=== PATIENT | female | born 1985 | race Caucasian/White ===

== ENCOUNTER 2023-08-05 09:38 | Emergency (ER) | payer SELFPAY ==
[2023-08-05 09:44] VITALS: BP 118/88
[2023-08-05 10:09] VITALS: BMI 38.3
--- NOTE | 2023-08-05 11:04 | ED.GENMED ---
History of Present Illness
General
Chief Complaint: Back Pain
Source: patient
Exam Limitations: none
Time Seen by Provider: 08/05/23 09:56
Nursing documentation reviewed up to this point in time: agreed with
Travel History
Have you had any contact with someone who has COVID-19?: No
Do you have any symptoms of coronavirus? Fever > 100 degrees, chills, cough, shortness of breath, sore throat, loss of taste or smell, muscle aches, or headache?: No
History of Present Illness
History of Present Illness:
37-year-old female with a past medical history of hypertension, asthma who presents to the emergency department for evaluation of low back pain. 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 She
says that about 2 weeks ago she was lifting heavy truck batteries at work and the next day woke up with soreness in her low back. She says that since then she has had constant low back pain and over the past few days she has started to notice some
shooting pains down the posterior left leg and some heaviness of the left leg. She says that she has been taking [id number] meds including Tylenol and NSAIDs, using heating pack and symptoms do not seem to be getting any better. She finally
came to the emergency room for assessment. She denies any symptoms in the right lower extremity. She denies any incontinence of bowel or bladder. She denies any saddle anesthesia. She denies any direct fall or trauma. She denies any other
complaints today.
Past History
Past History
ED Past Medical History: Asthma, HTN and Other (Mirana)
ED Past Surgical History: Cholecystectomy (Gall bladder removed in 2014) and (c-sections x2,)
Social History
Tobacco: Smoker
Alcohol: Occasional
Drug: None
Personal:
Living: with family
Employment: Not employed
Family History
Family History: Other (Noncontributory)
Review of Systems
Review of Systems
All Other Systems: ROS reviewed and negative except as documented in HPI and ROS
Constitutional: Denies fever or chills
Respiratory: Denies trouble breathing
Cardiac: Denies chest pain
ABD/GI: Denies abdominal pain or nausea
: Denies dysuria, flank pain or incontinence
Musculoskeletal: Reports back pain; Denies neck pain
Neurological: Reports weakness (Left leg) and other (Paresthesias left leg); Denies headache
Phy Exam
Physical Exam
Physical Exam:
General: Awake, alert, oriented x3; no acute distress
Head: Normocephalic, atraumatic
Eyes: Conjunctiva normal
Throat: Airway intact, handling secretions
Neck: Trachea midline, supple without meningismus
Lungs: Breathing comfortably not in distress
Heart: Regular rate
Abd: Soft, non distended, nontender
Back: She has some tenderness in the lumbar spine as well as in the left paraspinal region; she is negative straight leg raise test on the right but positive on the left
Neuro: Cranial nerves grossly intact, speech fluid; although she reports subjective weakness her strength and sensation is objectively intact proximally and distally 5/5 in both the right and the left lower extremity; she is ambulatory with normal
gait here
Skin: no rash
Extremities: No edema in extremities, equal pulses in all extremities
Scores
Heart Failure Risk
Heart Failure Risk Score: Not Applicable
Heart Score for Chest Pain Patients
STEMI patient?: Not applicable
Withdrawal Assessment of Alcohol
Withdrawal Assessment Completed?: Not applicable
Course
Orders/Labs/Results
Orders:
Orders
08/05/23 09:57
Test Result ONCE
CR Lumbar Spine 2 Or 3 Views Urgent
Comment:
Reason For Exam: subacute low back pain
08/05/23 11:08
HCG, Urine Qualitative Screen Urgent
Date Specimen was Collected: 08/05/23
Time Specimen was Collected: 10:49
Urinalysis Reflex To Culture Urgent
Date Specimen was Collected: 08/05/23
Time Specimen was Collected: 10:49
08/05/23 11:15
Ketorolac [Toradol] 30 mg IM NOW STA
Lidocaine [Lidocaine 4% Patch] 1 patch TOPICAL ONCE ONE
Prednisone [Deltasone] 50 mg PO NOW STA
Vital Signs
Initial and Last Documented VS:
Initial Vital Signs
Temp Pulse Resp BP Pulse Ox
36.7 C 78 22 118/88 100
08/05/23 09:44 08/05/23 09:44 08/05/23 09:44 08/05/23 09:44 08/05/23 09:44
Last Documented Vital Signs
Temp Pulse Resp BP Pulse Ox
36.7 C 53 18 113/54 100
08/05/23 09:44 08/05/23 12:45 08/05/23 12:45 08/05/23 12:45 08/05/23 12:45
MDM/Problems Addressed
Differential Diagnosis Includes:
Myofascial strain, herniated/bulging disc with radiculopathy, lumbar compression fracture
MDM/Problems Addressed:
37-year-old female presents for evaluation of low back pain mostly in the left side for the past 2 weeks since doing some heavy lifting at work. Now having some radicular symptoms and subjective weakness in the left leg. No incontinence of bowel
or bladder, no saddle anesthesia, no symptoms in the right leg. Vital signs are normal. Physical exam as above. Suspect that this is likely herniated disc/bulging disc with sciatica/radiculopathy. No red flag symptoms or signs on exam to suggest
spinal emergency and no indication for emergent MRI at this point. We sent for lumbar x-ray which showed no acute pathology. Will plan to treat symptomatically. Likely needs physical therapy and rest�advise no heavy lifting.
Lumbar x-ray no acute pathology. Patient feeling better after Toradol, Lidoderm, prednisone. Will discharge on steroid taper, NSAIDs and Tylenol as needed, Lidoderm patches as needed and written prescription for physical therapy. She will
follow-up with her primary doctor. Advised rest and no heavy lifting and work note provided. Patient is very happy with this plan. Spoke about return precautions all questions answered.
*Radiology
Radiology exam reviewed: radiology read reviewed
*Pulse Oximetry
Patient hypoxic: no
*Critical Care Note
Total Time (30-74mins, 75-104mins- exclusive of procedures): Not Applicable
Data Reviewed
Source: patient
ED Attending Note
-
Portions of this chart may have been created with voice recognition software.� Occasional wrong word or��sound alike� substitutions may have occurred due to the inherent limitations of voice recognition software.
Discharge Plan
Departure
Patient Disposition: Home (Routine Discharge)
Date of Disposition: 08/05/23
Time of Disposition: 13:37
Patient with high blood pressure during this ER visit?: No
Discharge Problem:
Acute low back pain with sciatica
Instructions: Low Back Pain (DC), Sciatica (DC)
Prescriptions:
New
prednisone 10 mg Tablet
See Rx Instructions .ROUTE .COMPLEX Qty: 45 0RF
Rx Instructions:
Take By Mouth:
50 mg daily x3 days, 40 mg daily x3 days,
30 mg daily x3 days, 20 mg daily x3 days,
10 mg daily x3 days
naproxen 500 mg tablet
500 mg PO BID PRN (Reason: Pain) Qty: 30 0RF
lidocaine 5 % adhesive patch,medicated
1 patch topical DAILY Qty: 30 0RF
No Action
prednisone 10 mg Tablet
See Rx Instructions .ROUTE .COMPLEX Qty: 30 0RF
Rx Instructions:
Take By Mouth:
40 mg daily x3 days, 30 mg daily x3 days,
20 mg daily x3 days, 10 mg daily x3 days.
cyclobenzaprine 10 mg tablet
10 mg PO TID PRN (Reason: spasm) Qty: 10 0RF
Referrals:
Florence Alicea MD [Family Provider] - Call in 1-3 days for appt
Stand Alone Forms: Return to Work
Activity Restrictions/Additional Instructions:
Thank you for visiting the Emergency Department at [facility].
1. Please schedule a follow up appointment as directed. Call first thing tomorrow morning to make an appointment.
2. If indicated, please take your medications as instructed and indicated on discharge paperwork.
3. If any of your symptoms do not improve, or persist, or become more severe within 6-12 hours, please return to the emergency department for further care.
4. Please return to the emergency department if you develop a headache, neck pain/stiffness, fever greater than 100.4F, chest pain, shortness of breath, persistent nausea, vomiting, slurred speech, difficulty walking, numbness/tingling, weakness,
signs of infection or any other symptoms that are worrisome to you.
Please call [phone] if you have any questions.
Interventions
Interventions:
*Risk Screen - Suicide Last Done: 08/05/23 10:09
*General Assessment Last Done: 08/05/23 10:09
*Neglect/Abuse Screening Last Done: 08/05/23 10:09
ED- Fall Risk Assessment Last Done: 08/05/23 10:09
*ED COVID-19 Vaccine History Last Done: 08/05/23 09:51
*Nursing Disposition Last Done: 08/05/23 14:00
ED-Musculoskeletal Assessment Last Done: 08/05/23 10:09
Discharge Date and Time
Discharge Date/Time: 08/05/23 13:50
Print Language: IVORIAN
[2023-08-05 11:23] LABS: Urine Albumin Negative (Neg - Trace); Urine Bilirubin Negative (Negative); Urine Character Clear (Clear); Urine Color Yellow; Urine Glucose Negative (Negative); Urine Ketone Negative (Negative); Urine Leukocyte Negative (Negative); Urine Nitrite Negative (Negative); Urine Occult Blood Negative (Negative); Urine Specific Gravity 1.005 (<1.030); Urine Urobilinogen Negative (Neg - 1+)
[2023-08-05 11:38] LABS: HCG, Urine Qualitative Screen Negative
[2023-08-05] MEDS: TORADOL 30 MG IM (11:42)
[2023-08-05] MEDS: LIDOCAINE 4% PATCH 1 PATCH TOPICAL (11:42)
[2023-08-05] MEDS: DELTASONE 50 MG PO (11:42)
[2023-08-05 12:45] VITALS: BP 113/54
--- NOTE | 2023-08-05 13:59 | EDRN ---
Discharge instructions given to patient by .
== END 2023-08-05 13:50 | disposition home or self-care (01) ==
LOC: EMR 09:38
PROVIDERS: EMERGENCY PHYSICIAN Emergency Medicine; FAMILY PHYSICIAN Internal Medicine
DX: M54.40 Lumbago with sciatica, unspecified side (principal); I10 Essential (primary) hypertension; J45.909 Unspecified asthma, uncomplicated; I71.40 Abdominal aortic aneurysm, without rupture, unspecified; F17.200 Nicotine dependence, unspecified, uncomplicated; Z90.49 Acquired absence of other specified parts of digestive tract
CPT/HCPCS: 99283; 96372; 72100; 81003; 81025

== ENCOUNTER 2023-11-24 20:03 | Emergency (ER) | payer OTHER, SELFPAY ==
[2023-11-24 20:19] VITALS: BP 118/74
[2023-11-24 22:23] VITALS: BP 103/72
[2023-11-24 23:02] VITALS: BMI 38.3
[2023-11-24 23:11] VITALS: BP 108/58
--- NOTE | 2023-11-24 23:51 | ED.GENMED ---
History of Present Illness
General
Chief Complaint: Back Pain
Source: patient
Exam Limitations: none
Time Seen by Provider: 11/24/23 23:08
History of Present Illness
History of Present Illness:
This is a 38 year old female that comes in with c/o low back pain. States that this started 2 days ago. States that she has had back issues before as her PCP a month ago gave her Flexeril to help with her pain. State that this time she went to sit
up higher in bed and she heard something pop on the left side. Denies any fever, chills, chest pain, SOB, abd pain, nausea, vomiting, diarrhea, heaache, dizziness, urinary burning. Denies any bowel or bladder incontinence.
Past History
Past History
ED Past Medical History: Asthma, HTN, Psychiatric (Bipolar), Other and Other (Mirana, Back pain, )
ED Past Surgical History: Cholecystectomy (Gall bladder removed in 2014), ('s x3), Orthopedic (right knee repair) and Other (Sudeep-en-y gastric bypass)
Social History
Tobacco: Smoker
Alcohol: None
Drug: None
Personal:
Living: with family
Employment: Not employed
Family History
Family History: Other (Noncontributory)
Review of Systems
Review of Systems
All Other Systems: ROS reviewed and negative except as documented in HPI and ROS
Constitutional: Reports no symptoms; Denies fever or chills
EENT: Reports no symptoms
Respiratory: Reports no symptoms; Denies cough or trouble breathing
Cardiac: Reports no symptoms; Denies chest pain
ABD/GI: Denies abdominal pain, nausea, vomiting or diarrhea
: Reports no symptoms; Denies dysuria, frequency, incontinence or urgency
Musculoskeletal: Reports back pain (Low back pain)
Skin: Reports no symptoms
Neurological: Reports no symptoms; Denies dizzy or headache
Psychiatric: Reports no symptoms
Phy Exam
General Physical Exam
General Presentation: no apparent distress
General age: appears stated age
General Skin: warm and dry
General Habitus: normal
General Mental: alert
General Hydration: appears well hydrated
ENT Exam
ENT Exam: TM's normal, pharynx normal and neck supple
Eye Exam
Eye Exam: EOMI
Cardiovascular Exam
Cardiovascular Exam: regular rate/rhythm, no edema, no murmur and normal peripheral pulses
Pulmonary Exam
Pulmonary Exam: lungs clear, no respiratory distress, no rales, chest non tender, no crackles, no rhonchi, no wheezing and no cough
Gastrointestinal Exam
Gastrointestinal Exam: normal bowel sounds, non tender, soft, no organomegaly, no pulsatile mass and non distended
Musculoskeletal Exam
Musculoskeletal Exam: back pain (with palpation over the lumbar spine. Discomfort with left leg straight leg raise, Turning side to side. Going up on her toes and bending forward 20 degree's) and no edema
Skin Exam
Skin Exam: normal color, warm/dry, no rash and no petechia
Psychiatric Exam
Psychiatric Exam: normal mood/affect
Course
Orders/Labs/Results
Orders:
Orders
11/24/23 23:50
Complete Blood Count/With Diff Urgent
Comprehensive Metabolic Panel Urgent
HCG, Serum Qualitative Screen Urgent
Acetaminophen [Tylenol] 1,000 mg PO NOW STA
Dexamethasone Sod Phosphate [Decadron] 20 mg IV NOW STA
Ketorolac [Toradol] 30 mg IV NOW STA
Test Result ONCE
11/25/23 00:02
Beta HCG Quantitative Urgent
Comment: ADD ON
11/25/23 00:35
Add On- LAB Urgent
Tests Added?: HCG quant
Abnormal Lab Results
11/25/23
00:02
RBC 4.19 L 10^6/uL
(4.20-5.40)
Hgb 10.5 L g/dL
(12.0-16.0)
Hct 31.9 L %
(37.0-47.0)
MCV 76.1 L fL
(81.0-99.0)
MCH 25.1 L pg
(27.0-31.0)
MCHC 32.9 L g/dL
(33.0-37.0)
RDW 14.6 H %
(11.5-14.5)
MPV 10.8 H fL
(7.4-10.4)
Carbon Dioxide 20 L mmol/L
(22-30)
BUN 18 H mg/dl
(7-17)
11/25/23 00:02
11/25/23 00:02
H/H low, anemac, carbon dioxide slightly low. Slight Dehydration. HCG positive. HCG quant <2.39
Vital Signs
Initial and Last Documented VS:
Initial Vital Signs
Temp Pulse Resp BP Pulse Ox
98.2 F 88 24 118/74 98
11/24/23 20:19 11/24/23 20:19 11/24/23 20:19 11/24/23 20:19 11/24/23 20:19
Last Documented Vital Signs
Temp Pulse Resp BP Pulse Ox
98.2 F 75 18 106/58 99
11/24/23 20:19 11/25/23 01:00 11/25/23 01:00 11/25/23 01:00 11/25/23 01:00
MDM/Problems Addressed
Differential Diagnosis Includes:
Degenerative lumbar spine, Compression fractures.
MDM/Problems Addressed:
This is a 38 year old female that comes in with c/o low back pain. States that she heard something pop 2 days ago when she went to pull herself up higher in bed.
will check labs and get CT of the lumbar spine.
back into see patient. Explained that her HCG is positive. she will not be able to have a CT scan. Will get HCG Quant and wait for other labs.
back into see patient. Explained that her HCG is <2.39. This is so low that she is not really considered . This may be just a very early . Patient to use just Tylenol for her back pain, heat or ice. Follow up with the AIRCRAFT DESIGNER for
further evaluation and blood testing. Patient to return with abd pain, or any other concerns.
Chronic conditions affecting care:
Chronic back pain
Acute Exacerbation and/or Progression of Chronic Illness:
Chronic back pain
*Pulse Oximetry
Patient hypoxic: no
*EKG
Interpreted by ED Provider?: NA
Rate: EKG- N/A
*Vp Construction Interpretation
Rate: Vp Construction- N/A
*Critical Care Note
Total Time (30-74mins, 75-104mins- exclusive of procedures): Not Applicable
ED Attending Note
-
Portions of this chart may have been created with voice recognition software.� Occasional wrong word or��sound alike� substitutions may have occurred due to the inherent limitations of voice recognition software.
Discharge Plan
Departure
Patient Disposition: Home (Routine Discharge)
Date of Disposition: 11/25/23
Time of Disposition: 01:34
Patient with high blood pressure during this ER visit?: No
Condition: Good
Covid-19: Not Applicable
Discharge Problem:
Low back pain
Instructions: Low Back Pain (DC)
Prescriptions:
No Action
cyclobenzaprine 10 mg tablet
10 mg PO TID PRN (Reason: spasm) Qty: 10 0RF
acetaminophen [Tylenol Ex Str Arthritis Pain] 500 mg Tablet
1,000 mg PO Q6H PRN (Reason: pain)
ibuprofen [Motrin] 400 mg Tablet
200 mg PO Q6H PRN (Reason: pain)
Referrals:
Florence Alicea MD [Family Provider] - Follow up in 2-3 days
Activity Restrictions/Additional Instructions:
As discussed, your blood work shows that you are anemic. Your HCG is very low and this would not be considered . However, this may just be very early. Please follow up with the AIRCRAFT DESIGNER for further evaluation. Please no working for the next 2
days. Rest. Heat or ice to the low back. Follow up with the family doctor. You my use Tylenol 1000mg every 6 hours for pain. IF YOU HAVE INCREASED OR CHANGING PAIN, OR YOU HAVE ANY OTHER CONCERNS PLEASE RETURN TO THE EMERGENCY ROOM.
Interventions
Interventions:
*Risk Screen - Suicide Last Done: 11/24/23 20:19
*General Assessment Last Done: 11/24/23 23:03
*Neglect/Abuse Screening Last Done: 11/24/23 20:19
ED- Fall Risk Assessment Last Done: 11/24/23 23:06
*ED COVID-19 Vaccine History Last Done: 11/24/23 23:03
ED-Musculoskeletal Assessment Last Done: 11/24/23 23:07
ED-Peripheral Vascular Assessment Last Done: 11/24/23 23:07
ED-Skin Assessment Last Done: 11/24/23 23:07
Discharge Date and Time
Print Language: BERMUDIAN
[2023-11-25] VITALS: BP 107/58
[2023-11-25] MEDS: TYLENOL 1000 MG PO (00:05)
[2023-11-25] MEDS: TORADOL 30 MG IV (00:06)
[2023-11-25] MEDS: DECADRON 20 MG IV (00:06)
[2023-11-25 00:10] LABS: % Eosinophils 1.7 % (0-6); % Immature Granulocytes 0.2 % (0-0.5); % Lymphocytes 46.1 % (20.5-51.1); % Monocytes 7.1 % (1.7-9.3); % Neutrophils 43.9 % (42.2-75.2); Absolute Basophils 0.1 10^3/uL (0-0.2); Absolute Eosinophils 0.1 10^3/uL (0-0.7); Absolute Lymphocytes 2.4 10^3/uL (1.2-3.4); Absolute Monocytes 0.4 10^3/uL (0.1-0.6); Absolute Neutrophils 2.3 10^3/uL (1.4-6.5); Hematocrit 31.9 % (37.0-47.0); Hemoglobin 10.5 g/dL (12.0-16.0); Mean Corp Hgb Conc. 32.9 g/dL (33.0-37.0); Mean Corpuscular Hgb 25.1 pg (27.0-31.0); Mean Corpuscular Volume 76.1 fL (81.0-99.0); Mean Platelet Volume 10.8 fL (7.4-10.4); Nucleated Red Blood Cells % 0 %; Platelet Count 209 10^3/uL (130-400); Red Blood Cell Count 4.19 10^6/uL (4.20-5.40); Red Cell Dist. Width 14.6 % (11.5-14.5); White Blood Cell Count 5.2 10^3/uL (4.8-10.8)
[2023-11-25 00:32] LABS: HCG, Serum Qualitative Screen Positive
[2023-11-25 00:34] LABS: ALT (SGPT) 19 U/L (0-35); AST (SGOT) 28 U/L (14-36); Albumin 4.7 g/dl (3.5-5.0); Alkaline Phosphatase 85 U/L (38-126); Blood Urea Nitrogen 18 mg/dl (7-17); Calcium 9.4 mg/dl (8.4-10.2); Carbon Dioxide 20 mmol/L (22-30); Chloride 106 mmol/L (98-107); Estimated Creatinine Clearance > 125 ml/min; Glucose 93 mg/dl (70-99); Potassium 4.5 mmol/L (3.5-5.1); Sodium 142 mmol/L (135-145); Total Bilirubin 0.7 mg/dl (0.2-1.3); Total Protein 7.3 g/dl (6.3-8.2); eGFR > 60.00
[2023-11-25 01:00] VITALS: BP 106/58
[2023-11-25 01:12] VITALS: BP 106/58
[2023-11-25 01:13] LABS: Beta HCG Quantitative < 2.39 mIU/ml
== END 2023-11-25 01:42 | disposition home or self-care (01) ==
LOC: EMR 20:03
PROVIDERS: Clinical Nurse Specialist Family Health; EMERGENCY PHYSICIAN Emergency Medicine; FAMILY PHYSICIAN Internal Medicine
DX: M54.50 Low back pain, unspecified (principal); J45.909 Unspecified asthma, uncomplicated; I10 Essential (primary) hypertension; F31.9 Bipolar disorder, unspecified; F17.200 Nicotine dependence, unspecified, uncomplicated; Z90.49 Acquired absence of other specified parts of digestive tract; Z98.84 Bariatric surgery status
CPT/HCPCS: 99283; 80053; 84702; 84703; 85025

== ENCOUNTER 2024-09-07 13:14 | Emergency (ER) | payer OTHER, SELFPAY ==
[2024-09-07 13:45] VITALS: BP 140/76
[2024-09-07 14:12] LABS: % Basophils 0.5 % (0-2); % Eosinophils 0.3 % (0-6); % Immature Granulocytes 0.3 % (0-0.5); % Lymphocytes 10.5 % (20.5-51.1); % Neutrophils 76.4 % (42.2-75.2); Absolute Lymphocytes 0.7 10^3/uL (1.2-3.4); Absolute Monocytes 0.8 10^3/uL (0.1-0.6); Absolute Neutrophils 5.1 10^3/uL (1.4-6.5); Mean Corpuscular Hgb 22.2 pg (27.0-31.0); Mean Corpuscular Volume 71.6 fL (81.0-99.0); Nucleated Red Blood Cells % 0 %; Platelet Count 178 10^3/uL (130-400); Red Blood Cell Count 4.05 10^6/uL (4.20-5.40); Red Cell Dist. Width 15.9 % (11.5-14.5); White Blood Cell Count 6.7 10^3/uL (4.8-10.8)
[2024-09-07 14:13] LABS: Urine Albumin 2+ (Neg - Trace); Urine Bilirubin Negative (Negative); Urine Character Cloudy (Clear); Urine Color Yellow; Urine Glucose Negative (Negative); Urine Ketone Negative (Negative); Urine Leukocyte 3+ (Negative); Urine Nitrite Positive (Negative); Urine Occult Blood 4+ (Negative); Urine Specific Gravity 1.015 (<1.030); Urine Urobilinogen 2+ (Neg - 1+)
[2024-09-07 14:23] LABS: ALT (SGPT) 18 U/L (0-35); AST (SGOT) 24 U/L (14-36); Albumin 4.4 g/dl (3.5-5.0); Alkaline Phosphatase 62 U/L (38-126); Blood Urea Nitrogen 16 mg/dl (7-17); Calcium 8.9 mg/dl (8.4-10.2); Carbon Dioxide 24 mmol/L (22-30); Chloride 106 mmol/L (98-107); Glucose 98 mg/dl (70-99); Potassium 4.4 mmol/L (3.5-5.1); Sodium 136 mmol/L (135-145); Total Bilirubin 1.1 mg/dl (0.2-1.3); Total Protein 7.3 g/dl (6.3-8.2); eGFR > 60.00
[2024-09-07 14:37] LABS: HCG, Serum Qualitative Screen Positive
[2024-09-07 14:59] LABS: Urine Red Blood Cell 30-40 /HPF (0-2)
[2024-09-07 15:00] LABS: Urine Bacteria Many (Negative); Urine White Cell >100 /HPF (0-5)
[2024-09-07 18:19] VITALS: BP 144/63
--- NOTE | 2024-09-07 18:26 | ED.GENMED ---
History of Present Illness
General
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
Source: patient
Exam Limitations: none
Time Seen by Provider: 09/07/24 18:11
Nursing documentation reviewed up to this point in time: agreed with
History of Present Illness
History of Present Illness:
Patient is a 39-year-old female who presents to the ER for evaluation. Patient reports that starting a week ago she has had urinary frequency and dysuria. She took Azo and pain resolved however over the past several days patient has had symptoms
come back and complains of chills and right back pain. She denies any nausea vomiting.
Last menstrual period was August 05. She denies any abdominal pain. Denies any vaginal bleeding.
Past History
Past History
ED Past Medical History: Asthma, HTN, Psychiatric (Bipolar), Other and Other (Mirana, Back pain, )
ED Past Surgical History: Cholecystectomy (Gall bladder removed in 2014), ('s x3), Orthopedic (right knee repair) and Other (Sudeep-en-y gastric bypass)
Social History
Tobacco: Smoker
Alcohol: None
Drug: None
Personal:
Living: with family
Employment: Not employed
Family History
Family History: Other (Noncontributory)
Phy Exam
General Physical Exam
General Presentation: no apparent distress
General age: appears stated age
General Skin: warm and dry
General Habitus: normal
General Mental: alert
General Hydration: appears well hydrated
Cardiovascular Exam
Cardiovascular Exam: regular rate/rhythm, no murmur and normal peripheral pulses
Pulmonary Exam
Pulmonary Exam: lungs clear and no respiratory distress
Gastrointestinal Exam
Gastrointestinal Exam: non tender and soft
Neurological Exam
Neurological Exam: alert and oriented x3
Musculoskeletal Exam
Musculoskeletal Exam: full ROM
Skin Exam
Skin Exam: normal color and warm/dry
Psychiatric Exam
Psychiatric Exam: normal mood/affect
Course
Orders/Labs/Results
Orders:
Orders
09/07/24 13:51
Test Result ONCE
09/07/24 14:00
Beta HCG Quantitative Urgent
Is this a screen?: No
CBC/With Diff [Complete Blood Count/With Diff] Urgent
CMP [Comprehensive Metabolic Panel] Urgent
HCG, Serum Qualitative Screen Urgent
Urinalysis Reflex To Culture Urgent
Date Specimen was Collected: 09/07/24
Time Specimen was Collected: 13:51
Urine Microscopic Reflex Cult Urgent
Urine Culture Urgent
SURAJ Source: U
Specimen Description:
Date Specimen was Collected: 09/07/24
Time Specimen was Collected: 13:51
09/07/24 18:28
Add On- LAB Urgent
Tests Added?: hcg serum quantitative
09/07/24 18:49
CefTRIAXone [Rocephin] 1,000 mg IV NOW STA
09/07/24 19:51
Renal & Bladder US [US Renal With Bladder] Urgent
Comment:
Reason For Exam: right flank pain
Abnormal Lab Results
09/07/24
14:00
RBC 4.05 L 10^6/uL
(4.20-5.40)
Hgb 9.0 L g/dL
(12.0-16.0)
Hct 29.0 L %
(37.0-47.0)
MCV 71.6 L fL
(81.0-99.0)
MCH 22.2 L pg
(27.0-31.0)
MCHC 31.0 L g/dL
(33.0-37.0)
RDW 15.9 H %
(11.5-14.5)
Absolute Lymphs (auto) 0.7 L 10^3/uL
(1.2-3.4)
Absolute Monos (auto) 0.8 H 10^3/uL
(0.1-0.6)
Neutrophils % 76.4 H %
(42.2-75.2)
Lymphocytes % 10.5 L %
(20.5-51.1)
Monocytes % 12.0 H %
(1.7-9.3)
Ur Occult Blood Reflex 4+ A
(Negative)
Urine Nitrite (Reflex) Positive A
(Negative)
Urine Urobilinogen 2+ A
(Neg - 1+)
Leukocyte Esterase Rfl 3+ A
(Negative)
Urine RBC 30-40 A /HPF
(0-2)
Urine WBC (Reflex) >100 A /HPF
(0-5)
Urine Bacteria (Reflex) Many A
(Negative)
Urine Albumin (Reflex) 2+ A
(Neg - Trace)
09/07/24 14:00
09/07/24 14:00
Vital Signs
Initial and Last Documented VS:
Initial Vital Signs
Temp Pulse Resp BP Pulse Ox
99.0 F 108 20 140/76 100
09/07/24 13:45 09/07/24 13:45 09/07/24 13:45 09/07/24 13:45 09/07/24 13:45
Last Documented Vital Signs
Temp Pulse Resp BP Pulse Ox
99.7 F 76 18 123/67 96
09/07/24 19:20 09/07/24 21:17 09/07/24 21:17 09/07/24 21:17 09/07/24 21:17
MDM/Problems Addressed
MDM/Problems Addressed:
As documented patient is a 39-year-old female who presented with UTI symptoms for the past week recently has had chills subjective fevers. Urinalysis consistent with obvious UTI with greater than 100 white blood cells 30/40 RBCs and nitrates.
Patient has a normal white count normal chemistries. Incidentally patient's hCG was positive. Her last menstrual period was August 05 she thought she may have been but was not sure. She denies any abdominal pain or vaginal bleeding. With
right flank pain will send for renal bladder ultrasound to make sure there is no hydro .
Quantitative hCG was sent by the nurse and less than 2.39 indicating a negative .
Symptoms are consistent with pyelonephritis with patient's complaint of flank pain UTI symptoms and chills however she is well-appearing no nausea vomiting afebrile here with a normal white count. Renal bladder ultrasound negative for renal calculi
or hydro.
She was given 1 dose of IV Rocephin as documented will discharge with cefdinir for 10 days.
Regarding patient's hCG I did recommend that she have blood work rechecked by her RECTIFYING ATTENDANT in the next week however likely a false positive. She does have history of tubal ligation but had gastric bypass surgery and was told that with losing a
significant amount of weight there is a chance that could occur.
Case reviewed with ED physician. Patient is well-appearing stable for discharge home. Return precautions given.
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
*Radiology
Radiology exam reviewed: radiology read reviewed
*Pulse Oximetry
SaO2: 99
Oxygen Mode of Delivery: Room air
Patient hypoxic: no
*Critical Care Note
Total Time (30-74mins, 75-104mins- exclusive of procedures): Not Applicable
ED Attending Note
-
Portions of this chart may have been created with voice recognition software.� Occasional wrong word or��sound alike� substitutions may have occurred due to the inherent limitations of voice recognition software.
Discharge Plan
Departure
Patient Disposition: Home (Routine Discharge)
Date of Disposition: 09/07/24
Time of Disposition: 21:27
Patient with high blood pressure during this ER visit?: No
Condition: Fair
Covid-19: Not Applicable
Discharge Problem:
Pyelonephritis
Instructions: Urinary tract infection in adults - ED discharge instructions
Prescriptions:
New
cefdinir 300 mg capsule
300 mg PO BID Qty: 20 0RF
No Action
cyclobenzaprine 10 mg tablet
10 mg PO TID PRN (Reason: spasm) Qty: 10 0RF
acetaminophen [Tylenol Ex Str Arthritis Pain] 500 mg Tablet
1,000 mg PO Q6H PRN (Reason: pain)
ibuprofen [Motrin] 400 mg Tablet
200 mg PO Q6H PRN (Reason: pain)
Referrals:
Florence Alicea MD [Family Provider]
Activity Restrictions/Additional Instructions:
As discussed antibiotic twice a day for the next 10 days for kidney infection. Stable hydrated. You may take Tylenol or ibuprofen as needed. Follow-up with your family doctor in the next several days for reevaluation.
Also as discussed your second blood test for was negative you may follow-up with your RECTIFYING ATTENDANT/family doctor for repeat testing in a week.
Your ultrasound was negative for a kidney stone.please further review additional findings as reviewed with your family doctor. You were given copy of this report.
Return if any worsening of symptoms include increasing back pain fever chills nausea vomiting.
Interventions
Interventions:
*Risk Screen - Suicide Last Done: 09/07/24 13:45
*General Assessment Last Done: 09/07/24 13:45
*Neglect/Abuse Screening Last Done: 09/07/24 13:45
*ED- Fall Risk Assessment Last Done: 09/07/24 13:45
*ED COVID-19 Vaccine History Last Done: 09/07/24 13:45
*Nursing Disposition Last Done: 09/07/24 21:47
ED-Female Genitourinary Assessment Last Done: 09/07/24 18:16
Discharge Date and Time
Discharge Date/Time: 09/07/24 21:51
Print Language: COOK ISLAND[place]
[2024-09-07] MEDS: ROCEPHIN 1000 MG IV (19:07)
[2024-09-07 19:35] LABS: Beta HCG Quantitative < 2.39 mIU/ml
[2024-09-07 21:15] VITALS: BP 123/67
[2024-09-07 21:17] VITALS: BP 123/67
== END 2024-09-07 21:51 | disposition home or self-care (01) ==
LOC: EMR 13:14
PROVIDERS: Emergency Medicine; EMERGENCY PHYSICIAN Emergency Medicine; FAMILY PHYSICIAN Internal Medicine
DX: N10 Acute pyelonephritis (principal); I10 Essential (primary) hypertension; J45.909 Unspecified asthma, uncomplicated; F31.9 Bipolar disorder, unspecified; G47.30 Sleep apnea, unspecified; F17.200 Nicotine dependence, unspecified, uncomplicated; Z90.49 Acquired absence of other specified parts of digestive tract; Z98.84 Bariatric surgery status
CPT/HCPCS: 99284; 96374; 76770; 80053; 81003; 81015; 84702; 84703; 85025; 87077; 87086